=== PATIENT | female | born 1970 | race Caucasian/White ===

== ENCOUNTER → 2018-10-09 | Outpatient (CLI) | payer BC, OTHER, SELFPAY ==
[~2018-10-09] MED LIST: ADVA1AER2; DUONSOL; FLON0.05; SPIR1CAP; XANA0.25
--- NOTE | 2018-10-12 07:49 | SLEEPCENT ---
DATE OF PROCEDURE: 10/09/2018 ORDERED BY: Dr. Porras Nocturnal polysomnography was performed for evaluation of sleep physiology in this patient with excessive somnolence, snoring and nonrestorative sleep, who has comorbidities of emphysema and obesity. 6 hours and 43 minutes of data were reviewed. There were 316 minutes of sleep identified. Sleep latency was prolonged at 33 minutes. Rapid eye movement (REM) latency was normal at 88 minutes. Sleep architecture was fair but with impaired progression. Overall sleep efficiency was 79.4%. The electrocardiogram showed a sinus rhythm with an average heart rate of 68 beats per minute. Electroencephalogram (EEG) showed normal waveforms for awake and sleep stages. There were 53 respiratory events identified of 10 seconds in duration or greater for an apnea, hypopnea index of 10. The events were more frequent in stage REM in the supine posture. Arousals from respiratory events occurred 12.7 times per hour and oxygen desaturations were seen to 90%. There was little activity in the limb leads and remaining measures of sleep physiology were normal. IMPRESSION: Obstructive sleep apnea syndrome (G47.33). Apnea-hypopnea index of 10. RECOMMENDATIONS: The patient should be encouraged to return to sleep disorder center for pressure therapy. In the interim, alcohol and sedative avoidance should be practiced and caution exercised during operation of motor vehicles.
== END ==
LOC: M SLEEP 20:00
PROVIDERS: ATTEND Internal Medicine Pulmonary Disease
DX: R40.0 Somnolence (principal)

== ENCOUNTER → 2018-11-29 | Outpatient (CLI) | payer BC ==
--- NOTE | 2018-12-06 10:11 | SLEEPCENT ---
DATE OF STUDY: 11/29/2018 ORDERED BY: Dr. Porras Nocturnal polysomnography was performed for the titration of pressure therapy in this patient with obstructive sleep apnea syndrome and apnea-hypopnea index of 10. For testing, a ResMed AirFit F20 full face mask of medium size was used and 4 cm of water pressure were applied to the circuit and the lights were extinguished. 7 hours and 38 minutes of data were reviewed. There were 375 minutes of sleep identified. Sleep latency was mildly prolonged at 22.5 minutes. Rapid eye movement (REM) latency was normal at 75 minutes. Sleep architecture was good with 4 REM cycles. Overall sleep efficiency was 83%. The electrocardiogram showed a sinus rhythm with an average heart rate of 70 beats per minute. Electroencephalogram (EEG) showed normal waveforms for awake and sleep. Respiratory events were fully palliated with C-PAP at a pressure of +7. Hypoventilatory oxygen desaturations thereafter prompted the addition of supplemental oxygen. Best sleep was seen on a C-PAP pressure of +7 with 2 liters of oxygen bled through the system. There was some minimal limb activity. Limb movement arousal index was 5.3. IMPRESSION: Obstructive sleep apnea syndrome (G47.33). RECOMMENDATION: Nightly use of pressure therapy at 7 cm of water with 2 liters of oxygen bled through the system to address hypoventilatory oxygen desaturations.
== END ==
LOC: M SLEEP 19:30
PROVIDERS: ATTEND Internal Medicine Pulmonary Disease
DX: G47.33 Obstructive sleep apnea (adult) (pediatric) (principal)

== ENCOUNTER → 2024-03-21 | Outpatient (REF) | payer OTHER, MEDICARE | LOC: M LAB REF 17:13 | PROVIDERS: ATTEND Internal Medicine Pulmonary Disease | DX: J43.1 Panlobular emphysema (principal) ==